=== PATIENT | male | born 1955 | race Caucasian/White ===

== ENCOUNTER 2016-11-21 14:10 | Emergency (ER) | payer OTHER ==
[~2016-11-21] VITALS: Ht 185.4 cm; Wt 121.6 kg
[2016-11-21 14:15] VITALS: BP 156/84
--- NOTE | 2016-11-21 14:31 | EKG ---
[address] [address] Test Date: 2016-11-21 Test Time: 14:30:34 Pat Name: KARMEN LANG Department: Room: Gender: M Automatic Clipper: [facility] : 1955 Requested By: DINO CLARK Order Number: [id number] Reading MD: Saud River Measurements Intervals [place] Rate: 77 P: 38 FL: 190 QRS: 26 QRSD: 92 T: 24 QT: 374 QTc: 425 Interpretive Statements SINUS RHYTHM NON-SPECIFIC ST/T CHANGES Electronically Signed On 11-29-2016 14:10:29 CDT by Saud River
--- NOTE | 2016-11-21 14:45 | ED.ADGEN ---
Adult General HPI HPI Patient is a 61-year-old male presents emergency department by EMS. Patient has a history of diabetes and hypertension. Patient took his diabetic medications this morning but has not had anything to eat since light last night. He is skipped both breakfast and lunch today. He was out mowing grass in the heat when he began to feel some tingling in his hands and feet and then began to feel flushed. He called EMS at that time. They found him with a blood sugar in the low 50s. They gave him some oral glucose in his symptoms have completely resolved. Review of Systems Review of Systems Constitutional: Denies fever or chills [] Eyes: Denies change in visual acuity, redness, or eye pain [] HENT: Denies nasal congestion or sore throat [] Respiratory: Denies cough or shortness of breath [] Cardiovascular: No additional information not addressed in HPI [] GI: Denies abdominal pain, nausea, vomiting, bloody stools or diarrhea [] : Denies dysuria or hematuria [] Musculoskeletal: Denies back pain or joint pain [] Integument: Denies rash or skin lesions [] Neurologic: Denies headache, focal weakness or sensory changes [] Endocrine: Denies polyuria or polydipsia [] Current Medications Current Medications Current Medications Medications (Trade) Dose Ordered Sig/Pramod Start Time Stop Time Status Last Admin Dose Admin Sodium Chloride (Iv Sodium Chloride 0.9% 1,000ml) 1,000 ml @ 1,000 mls/hr 1X ONCE 11/21/16 15:30 11/21/16 16:29 11/21/16 15:15 1,000 MLS/HR Allergies Allergies Allergies Coded Allergies Type Severity Reaction Last Updated Verified No Known Drug Allergies 11/21/16 No Physical Exam Physical Exam Constitutional: Well developed, well nourished, no acute distress, non-toxic appearance. [] HENT: Normocephalic, atraumatic, bilateral external ears normal, oropharynx moist, no oral exudates, nose normal. [] Eyes: PERRLA, EOMI, conjunctiva normal, no discharge. [] Neck: Normal range of motion, no tenderness, supple, no stridor. [] Cardiovascular:Heart rate regular rhythm, no murmur [] Lungs & Thorax: Bilateral breath sounds clear to auscultation [] Abdomen: Bowel sounds normal, soft, no tenderness, no masses, no pulsatile masses. [] Skin: Warm, dry, no erythema, no rash. [] Back: No tenderness, no CVA tenderness. [] Extremities: No tenderness, no cyanosis, no clubbing, ROM intact, no edema. [] Neurologic: Alert and oriented X 3, normal motor function, normal sensory function, no focal deficits noted. [] Psychologic: Affect normal, judgement normal, mood normal. [] Current Patient Data Vital Signs Vital Signs Date Time Temp Pulse Resp B/P Pulse Ox O2 Delivery O2 Flow Rate FiO2 11/21/16 14:15 98.5 86 12 96 Room Air Lab Results Laboratory Tests Test 11/21/16 14:43 11/21/16 14:49 11/21/16 15:03 11/21/16 15:17 White Blood Count 6.0x10^3/uL (4.0-11.0) Red Blood Count 4.48x10^6/uL (4.30-5.70) Hemoglobin 14.0g/dL (13.0-17.5) Hematocrit 41.6% (39.0-53.0) Mean Corpuscular Volume 93fL (79-100) Mean Corpuscular Hemoglobin 31pg (25-35) Mean Corpuscular Hemoglobin Concent 34g/dL (31-37) Red Cell Distribution Width 13.3% (11.5-14.5) Platelet Count 218x10^3/uL (140-400) Neutrophils (%) (Auto) 59% (31-73) Lymphocytes (%) (Auto) 25% (24-48) Monocytes (%) (Auto) 13% (0-9) H Eosinophils (%) (Auto) 3% (0-3) Basophils (%) (Auto) 1% (0-3) Neutrophils # (Auto) 3.5x10^3uL (1.8-7.7) Lymphocytes # (Auto) 1.5x10^3/uL (1.0-4.8) Monocytes # (Auto) 0.7x10^3/uL (0.0-1.1) Eosinophils # (Auto) 0.2x10^3/uL (0.0-0.7) Basophils # (Auto) 0.0x10^3/uL (0.0-0.2) POC Troponin I 0.00ng/ml (<0.08) POC Hemoglobin 14.3gm/dL POC Hematocrit 42% POC Sodium 141mmol/L (135-145) POC Potassium 3.7mmol/L (3.5-5.0) POC Chloride 99mmol/L (98-110) POC Total CO2 25mmol/L (23-32) Anion Gap 21mmol/L (6-14) H POC Blood Urea Nitrogen 8mg/dL (8-26) POC Creatinine 0.8mg/dL (0.5-1.4) Glucose Level 57mg/dL (60-99) L POC Ionized Calcium (Donald) 1.09mmol/L (1.13-1.32) L Prothrombin Time 9.9SEC (9.4-11.4) Prothrombin Time INR 1.0 (0.9-1.1) PTT 25SEC (23-33) Magnesium Level 1.9mg/dL (1.8-2.4) Aspartate Amino Transferase (AST) 21U/L (15-37) Alanine Aminotransferase (ALT) 35U/L (16-63) Alkaline Phosphatase 65U/L (46-116) PL-Ohs-F-Type Natriuretic Peptide 6pg/mL (0-124) Test 11/21/16 16:01 Glucose (Fingerstick) 139mg/dL (70-99) H EKG EKG EKG interpreted by me, normal sinus rhythm, 77 beats for minute, no ST segment elevation, normal axis. [] Radiology/Procedures Radiology/Procedures Portable chest, 11/21/2016: History: Chest pain Comparison is made to a study from 03/05/2006. The heart size and pulmonary vascularity are normal. No pulmonary infiltrates are seen. There is no evidence of pleural fluid. IMPRESSION: No acute cardiopulmonary abnormality is detected. DICTATED AND SIGNED BY: JOANA BAEZ MD DATE: 11/21/16 8206 CC: DINO CLARK MD; PCP,NO ~[] Course & Med Decision Making Course & Med Decision Making Pertinent Labs and Imaging studies reviewed. (See chart for details) Patient has remained asymptomatic ever since his blood sugar is return to normal range. He has had a full meal here in emergency department. He states he continues to feel very well. Patient's workup has been largely reassuring. At this point, we will discharge him home with supportive care and follow-up instructions as well as strict return precautions. [] Final Impression Final Impression Hypoglycemia [] Problems: Dragon Disclaimer Dragon Disclaimer This electronic medical record was generated, in whole or in part, using a voice recognition dictation system. DINO CLARK MD Nov 21, 2016 14:45
[2016-11-21 15:00] LABS: BASO % 1 % (0-3); EOS # 0.2 x10^3/uL (0.0-0.7); EOS % 3 % (0-3); HEMATOCRIT 41.6 % (39.0-53.0); LYMPH # 1.5 x10^3/uL (1.0-4.8); LYMPH % 25 % (24-48); MEAN CORPUSCULAR HEMOGLOBIN 31 pg (25-35); MEAN CORPUSCULAR HGB CONC 34 g/dL (31-37); MEAN CORPUSCULAR VOLUME 93 fL (79-100); MONO # 0.7 x10^3/uL (0.0-1.1); MONO % 13 % (0-9); NEUT # 3.5 x10^3uL (1.8-7.7); NEUT % 59 % (31-73); PLATELET COUNT 218 x10^3/uL (140-400); RED BLOOD COUNT 4.48 x10^6/uL (4.30-5.70); RED CELL DISTRIBUTION WIDTH 13.3 % (11.5-14.5)
--- NOTE | 2016-11-21 15:17 | RAD ---
Portable chest, 11/21/2016: History: Chest pain Comparison is made to a study from 03/05/2006. The heart size and pulmonary vascularity are normal. No pulmonary infiltrates are seen. There is no evidence of pleural fluid. IMPRESSION: No acute cardiopulmonary abnormality is detected.
[2016-11-21] MEDS ORDERED: IV NORMAL SALINE 1,000ML 1,000 ML IV ONE (15:30)
[2016-11-21 15:52] LABS: HEMOGLOBIN ISTAT 14.3 gm/dL; POTASSIUM ISTAT 3.7 mmol/L (3.5-5.0)
[2016-11-21 15:54] LABS: MAGNESIUM 1.9 mg/dL (1.8-2.4)
== END 2016-11-21 16:25 | disposition home or self-care (01) ==
LOC: ER 14:10
DX: E11.649 Type 2 diabetes mellitus with hypoglycemia without coma (principal); I10 Essential (primary) hypertension
CPT/HCPCS: 36415; 71010; 80047; 82947; 83735; 83880; 84075; 84450; 84460; 84484; 85027; 85610; 85730; 93005; 96360; 99285-25; J7030

== ENCOUNTER → 2018-01-09 | Outpatient (CLI) | payer OTHER ==
[~2018-01-09] MED LIST: IOHEXOL 300 MG/ML 75 ML VIAL. IV ONE
[2018-01-09 08:55] LABS: GFR 91.9
--- NOTE | 2018-01-09 10:31 | RAD ---
CT ABDOMEN WO/W CONTRAST Indication: Renal stones, abnormal sono, [id number] 75ml Exposure: One or more of the following individualized dose reduction techniques were utilized for this examination: 1. Automated exposure control 2. Adjustment of the mA and/or kV according to patient size 3. Use of iterative reconstruction technique. Comparison: CT scan November 14, 2017. Ultrasound January 02, 2018. Contrast: No intravenous contrast given. No oral contrast per request. Evaluation of solid viscera, bowel and vasculature is compromised by the noncontrast technique. Lower thorax: Minimal infiltrate or atelectasis in the lung bases. Liver: Unremarkable Spleen: Unremarkable Pancreas: Unremarkable Adrenals:No evidence of mass. Kidneys: Hypodense left renal lesion is stable since prior CT, most likely a cyst multiple small hypodense lesions of the right kidney are identified, better seen on today's study, likely due to technique difference. Also likely tiny subcentimeter cysts. Subtle echogenic 14 mm nodule identified on ultrasound at the upper pole the left kidney is not seen on the CT scan. Urinary tracts: Small right lower pole renal calculus is nonobstructive, not seen previously. 3 nonobstructive left renal calculi were seen previously and appears similar. No hydronephrosis or proximal ureteric dilatation. Gallbladder: No calcified stone Aorta: Nonaneurysmal Lymph nodes: No significant enlargement GI tract: No abnormal bowel loop dilatation. Appendix is partially included and appears within normal limits. Visualized skeleton is unremarkable. No evidence of ascites. IMPRESSION: 1. Bilateral nonobstructive renal calculi. 2. Low-density lesions in both kidneys, most likely cysts. 3. Echogenic nodule described on ultrasound is not confirmed on CT scan. Therefore, recommend sonographic follow-up. 4. Minimal atelectasis or infiltrate in lung bases. Electronically signed by: Sal Ta MD (01/09/2018 10:27 AM) [id number]
== END | disposition home or self-care (01) ==
LOC: CT 07:24
PROVIDERS: ATTEND Internal Medicine
DX: N13.39 Other hydronephrosis (principal); N20.0 Calculus of kidney; I10 Essential (primary) hypertension; E11.9 Type 2 diabetes mellitus without complications
CPT/HCPCS: 36415; 74170; 82565; Q9967

== ENCOUNTER → 2018-07-12 | Outpatient (CLI) | payer OTHER ==
--- NOTE | 2018-07-12 15:47 | RAD ---
Renal sonography Clinical indications: Six-month follow-up. History of stones. COMPARISON: CT study dated January 09, 2018. FINDINGS: The longitudinal and AP and transverse dimensions of the right kidney are 11.7 cm and 5.1 cm and 5.9 cm respectively. There is a stone of the mid to upper aspect of the right kidney measuring 9 mm in size. No hydronephrosis or renal mass or perinephric fluid collection is seen on this side. The longitudinal and AP and transverse dimensions of the left kidney are 11.4 cm and 5.2 cm and 4.9 cm respectively. There is a stone of the mid to lower aspect of the left kidney measuring 8 mm. There is a stone of the upper pole measuring 7 mm. No hydronephrosis or renal mass or perinephric fluid collection is seen on this side. There is a small cyst measuring 1 cm in size within the lateral mid aspect of the left kidney. The urinary bladder is empty. IMPRESSION: Bilateral renal stones. No hydronephrosis. Electronically signed by: Darrin Magaña MD (07/12/2018 3:44 PM) [id number]
== END | disposition home or self-care (01) ==
LOC: US 07:37
PROVIDERS: ATTEND Internal Medicine
DX: N20.0 Calculus of kidney (principal); N28.1 Cyst of kidney, acquired
CPT/HCPCS: 76770

== ENCOUNTER → 2019-01-08 | Outpatient (CLI) | payer OTHER ==
--- NOTE | 2019-01-08 11:06 | RAD ---
KUB INDICATIONS: Abdominal pain. FINDINGS: There are 3 radiopaque stones of the left kidney which are all similar in shape and size. The largest stone measures 6.5 mm. No radiopaque stone of the right kidney is evident. There is mild fecal retention within the colon and rectosigmoid region. No dilatation of large or small bowel is seen. Brachytherapy clips of the prostate gland are seen. No lytic process or blastic process is seen. IMPRESSION: 3 radiopaque left renal stones. Electronically signed by: Darrin Magaña MD (01/08/2019 11:03 AM) [id number]
== END | disposition home or self-care (01) ==
LOC: DXRAD 08:56
PROVIDERS: ATTEND Internal Medicine
DX: N20.0 Calculus of kidney (principal); K59.00 Constipation, unspecified
CPT/HCPCS: 74018

== ENCOUNTER → 2019-03-05 | Outpatient (CLI) | payer OTHER ==
--- NOTE | 2019-03-05 14:00 | RAD ---
AP view the abdomen Clinical indications: History kidney stone COMPARISON: January 08, 2019. FINDINGS: 3 radiopaque stones of the mid and lower aspect of the left kidney are again seen and are unchanged in size. Largest measures 6 mm. Brachytherapy clips of the prostate are seen. No obstructive bowel pattern is evident. The osseous structures are intact. IMPRESSION: Stable radiopaque stones of the left kidney. Electronically signed by: Darrin Magaña MD (03/05/2019 1:57 PM) [facility]
== END | disposition home or self-care (01) ==
LOC: DXRAD 08:29
PROVIDERS: ATTEND Internal Medicine
DX: N20.0 Calculus of kidney (principal); Z87.442 Personal history of urinary calculi
CPT/HCPCS: 74018

== ENCOUNTER → 2019-05-08 | Outpatient (CLI) | payer OTHER ==
--- NOTE | 2019-05-08 16:37 | RAD ---
EXAM: Abdomen, single view. HISTORY: Nephrolithiasis. COMPARISON: 03/05/2019. FINDINGS: Frontal views of the abdomen and pelvis are obtained. There is a left nephroureteral stent overlying expected position. There is a small density overlying the distal aspect of the stent which is not calcified and may be artifactual. The previously demonstrated left renal stones are not seen on this exam. There are radiation seed implants within the prostate bed. There is a nonobstructive bowel gas pattern. IMPRESSION: 1. No convincing nephrolithiasis. The previously demonstrated left renal stones are not seen and there has been interval placement of a left nephroureteral stent. There is a small density along the distal aspect of the stent which is not typical in appearance for a distal ureteral stone. 2. Nonobstructive bowel gas pattern. Electronically signed by: Ella Cutler MD (05/08/2019 4:33 PM) [id number]
== END | disposition home or self-care (01) ==
LOC: DXRAD 10:54
PROVIDERS: ATTEND Internal Medicine
DX: N20.1 Calculus of ureter (principal); Z87.442 Personal history of urinary calculi
CPT/HCPCS: 74018

== ENCOUNTER → 2020-06-08 | Outpatient (CLI) | payer OTHER ==
--- NOTE | 2020-06-08 09:35 | RAD ---
EXAM: Renal sonogram. HISTORY: Urinary stone. TECHNIQUE: Sonographic imaging of the kidneys and bladder was performed. COMPARISON: Abdomen radiograph obtained on the same date. FINDINGS: The kidneys are normal in size. No solid or cystic renal lesion is seen. There is no hydronephrosis. No convincing renal stone is seen. The aorta is normal in caliber. The inferior vena cava is patent. The prevoid bladder volume is 47 cc. IMPRESSION: 1. Sonographically unremarkable kidneys. 2. Note is made that nephrolithiasis and suspected renal cysts demonstrated on a CT dated 01/09/2018 demonstrate no convincing sonographic correlate. Electronically signed by: Ella Cutler MD (06/08/2020 9:33 AM) [id number]
--- NOTE | 2020-06-08 09:40 | RAD ---
EXAM: Abdomen, single view. HISTORY: Nephrolithiasis. COMPARISON: Radiograph dated 05/08/[address] dated 01/09/2018. FINDINGS: A frontal view of the abdomen is obtained. There is a 4 mm density overlying the inferior left renal shadow which may be artifactual or due to a stone. There is no clear correlate for stones demonstrated on the prior CT. There is a nonobstructive bowel gas pattern. There are radiation seed implants within the prostate bed. IMPRESSION: 1. 4 mm density overlying the left renal shadow, possibly artifactual or due to a renal stone. There is no correlate for the previously demonstrated renal stones. 2. No obstructive bowel gas pattern. Electronically signed by: Ella Cutler MD (06/08/2020 9:37 AM) [id number]
== END ==
LOC: US 08:36
PROVIDERS: ATTEND Urology
DX: N20.0 Calculus of kidney (principal); R93.49 Abnormal radiologic findings on diagnostic imaging of other urinary organs; Z87.442 Personal history of urinary calculi
CPT/HCPCS: 74018; 76770

== ENCOUNTER → 2021-06-14 | Outpatient (CLI) | payer OTHER ==
--- NOTE | 2021-06-14 09:42 | RAD ---
KUB compared to similar exam dated June 08, 2020 for kidney stones. FINDINGS: No definite radiopaque renal, ureteral, or bladder calculi are identified. Moderate amount of stool, with no evidence of bowel obstruction. Fiducials all throughout the prostate. Degenerative changes of lumbar spine. IMPRESSION: 1. No radiographic evidence of genitourinary calculi. Electronically signed by: Rusty Palmer MD (06/14/2021 9:40 AM) [id number]
== END ==
LOC: RAD 08:39
PROVIDERS: ATTEND Urology
DX: N42.89 Other specified disorders of prostate (principal); R19.5 Other fecal abnormalities; M47.816 Spondylosis without myelopathy or radiculopathy, lumbar region; Z87.442 Personal history of urinary calculi
CPT/HCPCS: 74018